=== PATIENT | female | born 1985 | race Caucasian/White ===

== ENCOUNTER 2019-06-04 16:23 | Observation (INO) | payer MEDICAID, SELFPAY ==
[2019-06-04 16:55] LABS: #Lymphocytes 1.9 thou/uL (1.20-3.40); #Monocytes 0.5 thou/uL (0.11-0.59); #Neutrophils 8.7 thou/uL (1.40-6.50); %Basophils 0.2 % (0.0-1.0); %Eosinophils 0.2 % (0.0-10.0); %Lymphocytes 16.8 % (21.0-51.0); %Monocytes 4.6 % (0.0-10.0); %Neutrophils 78.3 % (42.0-75.0); Hemoglobin 10.6 g/dL (12.0-16.0); Mean Corpuscular HGB CONC 31.5 g/dL (32.0-36.0); Mean Corpuscular Hemoglobin 22.2 pg (27.0-31.0); Mean Corpuscular Volume 70.6 fL (78.0-98.0); Mean Platelet Volume 8.5 fL (7.4-10.4); Platelet Count 445 thou/uL (130-400); RBC Distribution Width 18.3 % (11.5-14.5); Red Blood Cell (RBC) Count 4.75 mill/uL (4.20-5.40)
[2019-06-04 17:17] LABS: Anisocytosis SLIGHT = 6-15 cells (100X) (0-5/hpf); Hypochromia SLIGHT = 6-15 cells (100X) (0-5/hpf); MDiff Complete? YES; Microcytosis SLIGHT = 6-15 cells (100X) (0-5/hpf); Ovalocytes SLIGHT = 2-5 cells (100X) (0-1/hpf); Platelet Morphology Comment Appears Increased; Polychromasia SLIGHT = 2-3 cells (100X) (0-2/hpf); Tear Drops SLIGHT = 2-5 cells (100X) (0-1/hpf)
[2019-06-04] MEDS ORDERED: Benzocaine-Menthol 82.5 ML CAN TOP PRN (18:58)
[2019-06-04] MEDS ORDERED: Ibuprofen 800 MG TAB PO PRN (18:58)
[2019-06-04] MEDS ORDERED: Bisacodyl 10 MG SUPP PR PRN (18:58)
[2019-06-04] MEDS ORDERED: hydrALAZINE 20 MG/ML VIAL SLOW IVP PRN (18:58)
[2019-06-04] MEDS ORDERED: Methylergonovine 0.2 MG TAB PO PRN (18:58)
[2019-06-04] MEDS ORDERED: diphenhydrAMINE 25 MG CAP PO PRN (18:58)
[2019-06-04] MEDS ORDERED: Milk Of Magnesia 30 ML UDCUP PO PRN (18:58)
[2019-06-04] MEDS ORDERED: Ondansetron PF 4 MG/2 ML Vial IVP PRN (18:58)
[2019-06-04] MEDS ORDERED: Misoprostol 200 MCG TAB VAG PRN (18:58)
[2019-06-04] MEDS ORDERED: Methylergonovine 0.2 MG/ML VIAL IM PRN (18:58)
[2019-06-04] MEDS ORDERED: Preparation H Ointment 28 GM TUBE PR PRN (18:58)
[2019-06-04] MEDS ORDERED: NS / Oxytocin 40 units/1000ml 1,000 ML IV SCH (19:00)
--- NOTE | 2019-06-04 20:35 | PDOC.FPROB ---
FMR OB H&P: HPI - History of Present Illness Chief Complaint: Unviable Delivered Indentification: 34 yo @ unknown gestation History of Present Illness: Pt comes in after delivering baby at home. Pt reports that she did not know she was . States has hx of irregular periods. States last period was June/ July. Pt states she took tests since then of all which were negative. Pt states earlier today she thought she was just having gas pains. Says she then passed and had bleeding. Pt then came to ER. Reports bleeding has since stopped. Reports lochia as light. Denies any pain at this time. Denies any fever or chills. Denies any urinary sx's. Denies any chest pain or SOB. Pt had no care as she didn't know she was . Pt reports that both her and her are SMA gene mutation carriers. Reports one son has SMA2 mutation. Primary Care Physician: None FMR OB H&P: Current - Care : 4 Para: 2013 Gestational age: Unknown Due date: Unknown - OB Labs Blood type: unknown RH: unknown Antibody Screen: unknown HIV: unknown RPR: unknown HepBsAg: unknown Quad screen: unknown Gonorrhea: unknown Chlamydia: unknown GBS: unknown FMR OB H&P: History - Past Medical History PMH: None - OB History OB History: SABx1 early on. 2 living children. 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 History: Denies any hx of STD or abnormal paps - Surgical History Sx History: x2, tonsillectomy - Social History Social History: Denies any smoking, drinking or illicit drug use - Family History Family History: Noncontributory FMR OB H&P: Medications - Current Allergies/Adverse Reactions: Allergies Allergy/AdvReac Type Severity Reaction Status Date / Time No Known Allergies Allergy Unverified 06/04/19 19:02 FMR OB H&P: ROS - Review of Systems General: denies: fever/chills, weight/appetite/sleep changes, night sweats Eyes: denies: vision changes ENT: denies: nasal congestion, rhinorrhea Cardiovascular: denies: chest pain, edema Respiratory: denies: cough, congestion, shortness of breath Gastrointestinal: denies: abdominal pain, indigestion, cramping, vomiting, diarrhea, constipation Genitourinary (Female): denies: incontinence, hematuria, polyuria, hesitancy, vaginal discharge, vaginal pain, vaginal bleeding, contractions, vaginal pressure Neurologic: denies: numbness, weakness Integumentary: denies: itching, rash Psychological: denies: depression, anxiety FMR OB H&P: Vital Signs - Maternal Vital signs: BP 141/83 RR 18 Pulse Ox 98% RA T 98.0 P 106 FMR OB H&P: Physical Exam - Physical Exam General: NAD, awake, alert and oriented HEENT: normocephalic and atraumatic, PERRLA, grossly normal vision, grossly normal hearing Neck: supple, FROM, trachea midline Heart: normal S1/S2, no murmurs/rubs/gallops Deviation from normal: Mildly tachycardic, regular rate General: CTAB, no respiratory distress, good air movement, no rales/rhonchi, no wheezing, no retractions Abdomen: soft, gravid, fundus(cm), non-tender, bowel sound present, no masses Musculoskeletal: normal gait and station, pulses present, FROM in all four extremities Neurological: sensation to pain,touch and proprioception grossly normal Skin: no rash, good tugor, capillary refill <2 seconds Psychiatric: intact recent and remote memory, good judgement and insight, normal mood and affect - Pelvic Exam Vulva: normal hair distribution Cervix: no masses, no lesions SVE: Uterus contracted. No clots extracted. No lacerations noted. FMR OB H&P: Results - Labs Lab results: Laboratory Results - last 24 hr 06/04/19 06/04/19 06/04/19 16:41 16:41 16:41 WBC 11.0 H RBC 4.75 Hgb 10.6 L Hct 33.5 L MCV 70.6 L MCH 22.2 L MCHC 31.5 L RDW 18.3 H Plt Count 445 H MPV 8.5 Neutrophils % 78.3 H Neutrophils % (Manual) Not Reportable Lymphocytes % 16.8 L Monocytes % 4.6 Eosinophils % 0.2 Basophils % 0.2 Neutrophils # 8.7 H Lymphocytes # 1.9 Monocytes # 0.5 Eosinophils # 0.0 Basophils # 0.0 Hypochromia SLIGHT = 6-15 cells Plt Morphology Comment Appears Increased H Polychromasia SLIGHT = 2-3 cells Anisocytosis SLIGHT = 6-15 cells Microcytosis SLIGHT = 6-15 cells Tear Drop Cells SLIGHT = 2-5 cells Ovalocytes SLIGHT = 2-5 cells Total Beta HCG 300.37 H Blood Type O POSITIVE 06/04/19 17:02 WBC RBC Hgb Hct MCV MCH MCHC RDW Plt Count MPV Neutrophils % Neutrophils % (Manual) Lymphocytes % Monocytes % Eosinophils % Basophils % Neutrophils # Lymphocytes # Monocytes # Eosinophils # Basophils # Hypochromia Plt Morphology Comment Polychromasia Anisocytosis Microcytosis Tear Drop Cells Ovalocytes Total Beta HCG Blood Type O POSITIVE FMR OB H&P: A/P - Problem List (1) demise Current Visit: Yes Status: Acute Code(s): [id number] - (2) , delivered Current Visit: Yes Status: Acute Code(s): O80 - ENCOUNTER FOR FULL-TERM UNCOMPLICATED DELIVERY Disposition: Delivered at home. Demise -Infant not living when delivered at home. foot measure 4.5 cm. Using nomogram estimate infant to be 24-25 weeks. Placenta intact. Head, limbs and digits all intact. Will send for tissue and pathology review at this time. -Mom reports lochia as light. Bimanual Exam performed. Uterus contracted. No clots or retained products noted. No lacerations noted. -Will observe on post unit overnight. IVF with Pitocin administered at this time. -No care. Routine OB labs ordered. -Will check am H&H. SMA carrier -Mom and Dad both SMA carriers. sent for pathology review. Possible cause of demise. Discussion: Date/Time: 06/04/192032 This H&P was discussed with [] and [] who agree with the above documentation and plan. Addendum - Attending - Attending Attestation Date/Time: 06/04/192154 I personally evaluated the patient and discussed the management with Dr. Leon. I agree with the History, Examination, Assessment and Plan documented above.
[2019-06-04] MEDS ORDERED: Promethazine HCl 25 MG/ML VIAL IM PRN (21:20)
[2019-06-04] MEDS ORDERED: Acetaminophen 500 MG TAB PO PRN (21:20)
[2019-06-04 21:51] LABS: Hemoglobin 9.8 g/dL (12.0-16.0); Mean Corpuscular Hemoglobin 21.7 pg (27.0-31.0); Mean Platelet Volume 8.9 fL (7.4-10.4); Platelet Count 421 thou/uL (130-400); RBC Distribution Width 18.2 % (11.5-14.5); White Blood Cell (WBC) Count 7.9 thou/uL (4.8-10.8)
[2019-06-04 22:10] LABS: ALT (SGPT) 20 U/L (8-55); AST (SGOT) 18 U/L (5-34); Albumin 3.7 g/dL (3.5-5.0); Alkaline Phosphatase 110 U/L (40-110); Anion Gap 12 mmol/L (10-20); BUN (Urea Nitrogen) 5 mg/dL (7.0-18.7); Bilirubin, Total 0.6 mg/dL (0.2-1.2); Calc. Creatinine Clearance 0 mL/min (70-130); Calcium 9.2 mg/dL (7.8-10.44); Carbon Dioxide 23 mmol/L (22-29); Chloride 109 mmol/L (98-107); Estimated GFR-MDRD 90; Globulin 3.4 g/dL (2.4-3.5); Glucose 88 mg/dL (70-105); Potassium 3.4 mmol/L (3.5-5.1); Protein, Total 7.1 g/dL (6.0-8.3); Sodium 141 mmol/L (136-145)
[2019-06-04] MEDS: Docusate Calcium (SURFAK) 240 MG CAP PO SCH (22:30)
[2019-06-04 22:36] LABS: Syphilis Antibody Nonreactive (Nonreactive); Syphilis Antibody Index 0.08 S/CO (<1.00 Non-Reactive)
[2019-06-04 22:53] LABS: HBSAg Index 0.12 S/CO (0-0.99); Hep B Surf Ag Non-Reactive S/CO (NonReactive)
[2019-06-05 00:56] LABS: Bilirubin Small (Negative); Blood, Urine Large (Negative); Glucose, Urine (Dipstick) Negative (Negative); Leukocyte Small (Negative); Nitrite Negative (Negative); Protein, Urine (Dipstick) 100 mg/dL (Neg-Trace); Urobilinogen 0.2 mg/dL (Less than 2)
[2019-06-05 00:59] LABS: Clarity Cloudy (Clear)
[2019-06-05 01:03] LABS: RBC/HPF Greater than 50 HPF (0-3); Squamous Epithelial 0-3 HPF (0-3); WBC/HPF 21-50 HPF (0-3)
[2019-06-05 01:04] LABS: Bacteria/HPF Rare-Few HPF (None Seen)
[2019-06-05 01:12] LABS: Amphetamine Not Detected (NotDetected); Barbiturates Screen Not Detected (NotDetected); Benzodiazepine Screen Not Detected (NotDetected); Cocaine Metabolite Screen Not Detected (NotDetected); Medtox Control Line Valid? VALID (VALID); Medtox Reader # READER 4; Methadone Not Detected (NotDetected); Methamphetamine Not Detected (NotDetected); Opiate Screen Not Detected (NotDetected); Oxycodone Screen Not Detected (NotDetected); Phencyclidine (PCP) Not Detected (NotDetected); THC/Cannabinoid Screen Not Detected (NotDetected); Tricyclic Screen Not Detected (NotDetected)
--- NOTE | 2019-06-05 06:41 | PDOC.PP ---
Post Progress Note Post Day #: 1 Subjective: Pt reports doing well. Denies any pain. Reports lochia as light. Tolerated PO. Passing gas. Denies any fever or chills. Denies any chest pain or SOB. Denies any swelling. Denies any acute events overnight. PO intake tolerated: yes Flatus: yes Ambulation: yes Vital Signs (12 hours) Temp Pulse Resp BP BP Pulse Ox 06/05/19 05:00 98.1 F 83 20 113/55 L 113/55 L 98 06/05/19 00:00 98.8 F 97 20 130/6 L 130/66 100 06/04/19 20:55 99.1 F 102 H 20 148/75 H 148/75 H 100 Weight Weight 131.9 g - Physical Examination General: NAD Cardiovascular: no m/r/g, RRR Respiratory: clear to auscultation bilaterally, non-labored breathing Abdominal: + bowel sounds, lochia (reported as light), no distention, appropriately TTP Fundus firm & at: below umbilicus Extremities: negative homans (B) Skin: no rash Neurological: no gross focal deficits Psychiatric: A&Ox3, normal affect Result Diagrams: 06/05/19 06:38 06/05/19 06:46 Additional Labs: Post Labs Blood Type O POSITIVE 06/04/19 17:02 Hep Bs Antigen Non-Reactive S/CO (NonReactive) 06/04/19 21:36 (1) demise Code(s): [id number] - Status: Acute (2) , delivered Code(s): O80 - ENCOUNTER FOR FULL-TERM UNCOMPLICATED DELIVERY Status: Acute - Assessment/Plan 34 yo @ unknown gestation presented w/ Demise -Based on foot measurements suspect infant was around 24 weeks gestation. Sent for path review at this time. Post Day #1 -Lochia light -VSS. -Tolerating PO -Minimal pain SMA carrier - sent for path review and genetic screen -Dad carrier as well. Possible cause for demise Dispo: Pt doing well with minimal bleeding. Likely d/c later today. Addendum - Attending - Attending Attestation Date/Time: 06/08/19 0830 I personally evaluated the patient and discussed the management with Dr. Leon. I agree with the History, Examination, Assessment and Plan documented above.
[2019-06-05 06:59] LABS: Hemoglobin 8.9 g/dL (12.0-16.0)
[2019-06-05 07:20] LABS: Anion Gap 13 mmol/L (10-20); BUN (Urea Nitrogen) 5 mg/dL (7.0-18.7); Calc. Creatinine Clearance 0 mL/min (70-130); Calcium 8.4 mg/dL (7.8-10.44); Carbon Dioxide 21 mmol/L (22-29); Chloride 109 mmol/L (98-107); Estimated GFR-MDRD Greater than 90; Glucose 91 mg/dL (70-105); Potassium 3.3 mmol/L (3.5-5.1); Sodium 140 mmol/L (136-145)
[2019-06-05 08:00] VITALS: BP 138/74; TEMP 98.5
[2019-06-05] MEDS: Docusate Calcium (SURFAK) 240 MG CAP PO SCH (08:54)
[2019-06-05] MEDS ORDERED: Adacel (T-DAP) 0.5 ML SYRINGE IM ONE (09:00)
[2019-06-05] MEDS ORDERED: Prenatal Vitamin 1 TAB PO SCH (09:00)
[2019-06-07 14:59] LABS: Ref Lab Test Ordered GENETIC STUDIES; Reference Lab Name NEO
== END 2019-06-05 13:58 | disposition home or self-care (01) ==
LOC: ERS 16:23 → 3SE 18:25
PROVIDERS: ADMIT Obstetrics & Gynecology; ATTEND Obstetrics & Gynecology
DX: O03.9 Complete or unspecified spontaneous abortion without complication (principal)
CPT/HCPCS: 36415; 80048; 80053; 80306; 81001; 84702; 85014; 85018; 85025; 86762; 86780; 86850; 86900; 86901; 87340; 88300; 88307; 90715; 96365; 96366; 99284; G0378